=== PATIENT | female | born 1955 | race Caucasian/White ===

== ENCOUNTER 2016-08-30 21:22 | Observation (INO) | payer BC ==
[2016-08-30] MEDS ORDERED: GLUCAGON 1 MG/ML VIAL IVP STA (21:53)
[2016-08-30] MEDS ORDERED: SODIUM CHLORIDE 0.9% 1,000 ML IV STA ×2 (21:53→23:01)
--- NOTE | 2016-08-30 22:58 | ED ---
General Adult HPI - General Chief complaint: ENT Stated complaint: food stuck in esophagus Time Seen by Provider: 08/30/16 21:39 Source: patient Mode of arrival: ambulatory Limitations: no limitations - History of Present Illness Initial comments: The patient is a 61 y/o female who presents to the ED with a chief complaint of difficulty with swallowing. The patient states that she developed this sensation after eating a tuna fish sandwich for dinner. The patient states that she believes that she has a hx of esophageal web. She has had an EGD performed in the past by her [employer] Team Leader, Dr. Addison. The patient notes that she has never needed endoscopy to treat a food bolus in the esophagus in the past. The patient notes that she can clear secretions but she develops vomiting after she attempts to drink water. The patient takes no medications aside from Metoprolol. - Related Data Home Medications Medication Instructions Recorded Confirmed Metoprolol Tartrate Unknown 0.5 tab PO BID 08/30/16 08/30/16 Strength Allergies Allergy/AdvReac Type Severity Reaction Status Date / Time codeine AdvReac Nausea & Verified 08/30/16 22:03 Vomiting Review of Systems ROS Statement: Those systems with pertinent positive or pertinent negative responses have been documented in the HPI. ROS Other: All systems not noted in ROS Statement are negative. Constitutional: Denies: fever, chills, weakness Eyes: Denies: vision change ENT: Reports: other (foreign body sensation in throat. Difficulty with swallowing). Denies: throat pain Respiratory: Denies: cough, dyspnea, wheezes, hemoptysis Cardiovascular: Denies: chest pain Endocrine: Denies: fatigue Gastrointestinal: Reports: nausea, vomiting. Denies: abdominal pain, diarrhea, constipation, hematemesis Genitourinary: Denies: urgency, dysuria, frequency Skin: Denies: rash Neurological: Denies: headache Psychiatric: Denies: anxiety, depression Past Medical History Past Medical History: Hypertension History of Any Multi-Drug Resistant Organisms: None Reported Past Surgical History: Hysterectomy Past Psychological History: No Psychological Hx Reported Smoking Status: Never smoker Past Alcohol Use History: Occasional Past Drug Use History: None Reported General Exam Limitations: no limitations General appearance: alert, in no apparent distress Head exam: Present: atraumatic, normocephalic Eye exam: Present: normal appearance, PERRL Pupils: Present: normal accommodation ENT exam: Present: normal exam, mucous membranes moist Neck exam: Present: normal inspection, full ROM. Absent: lymphadenopathy Respiratory exam: Present: normal lung sounds bilaterally. Absent: respiratory distress, wheezes, rales, rhonchi, stridor Cardiovascular Exam: Present: regular rate, normal rhythm GI/Abdominal exam: Present: soft. Absent: distended, tenderness, guarding, rebound Extremities exam: Present: normal inspection, full ROM Back exam: Present: normal inspection, full ROM Neurological exam: Present: alert, oriented X3 Psychiatric exam: Present: normal affect, normal mood Skin exam: Present: warm, dry, intact Course Vital Signs 08/30/16 21:33 Temperature 99.9 F H Pulse Rate 110 H Respiratory 18 Rate Blood Pressure 173/90 O2 Sat by Pulse 96 Oximetry Medical Decision Making - Medical Decision Making The patient is a 61 y/o female who presents to the ED with a chief complaint of foreign body sensation in the throat. The patient states that she developed this sensation after eating a tuna fish sandwich. The patient states that she believes she has a hx of esophageal web. The patient has never required endoscopy in the past for a food bolus. Will provide the patient with bolus of IVF. Will provide patient with Glucagon IV to see if this is able to relax the patient's esophageal sphincter and help to pass the food bolus. 10:46 PM The patient is no improved after receiving Glucagon. Patient vomited immediately after taking sips of water. Call placed to Dr. Palencia, who is waterfront director from Gastroenterology. 11:[address] Palencia. Will keep patient in Observation for Endoscopy tomorrow morning. Disposition Clinical Impression: Food impaction of esophagus Disposition: ADMITTED IP TO THIS [facility] Condition: Stable Decision to Admit Reason: Admit from Decision Date: 08/30/16 Decision Time: 23:08
[2016-08-30] MEDS ORDERED: ONDANSETRON 4 MG/2 ML VIAL IVP STA (23:01)
[2016-08-30] MEDS ORDERED: NALOXONE 0.4 MG/ML 1 ML VIAL IV PRN (23:11)
[2016-08-30] MEDS ORDERED: ONDANSETRON 4 MG/2 ML VIAL IVP PRN (23:13)
[2016-08-31 00:06] LABS: Basophils % (A) 0 %; CHCM 33.5; Eosinophils # (A) 0.1 k/uL (0-0.7); Eosinophils % (A) 1 %; HCT 39.8 % (34.0-46.0); HDW 2.46; HGB 13.3 gm/dL (11.4-16.0); Luc # (Auto) 0.09; Luc % (Auto) 1; Lymphocytes # (A) 1.3 k/uL (1.0-4.8); Lymphocytes % (A) 11 %; MCHC 33.4 g/dL (31.0-37.0); Monocytes # (A) 0.6 k/uL (0-1.0); Monocytes % (A) 6 %; Neutrophils # (A) 9.4 k/uL (1.3-7.7); Neutrophils % (A) 82 %; RBC 4.42 m/uL (3.80-5.40); RDW 13.9 % (11.5-15.5); WBC 11.5 k/uL (3.8-10.6); WBC (Perox) 10.48
[2016-08-31 00:12] LABS: Anion Gap 8 mmol/L; Blood Urea Nitrogen 11 mg/dL (7-17); Calcium 9.4 mg/dL (8.4-10.2); Carbon Dioxide 21 mmol/L (22-30); Chloride 108 mmol/L (98-107); Glucose 133 mg/dL (74-99); Non-African American GFR(MDRD) >60 (>60 ml/min/1.73 sqM); Potassium 4.2 mmol/L (3.5-5.1); Sodium 137 mmol/L (137-145)
[2016-08-31 00:16] LABS: Prothrombin Time 10.5 sec (9.0-12.0)
[2016-08-31 00:36] VITALS: BMI 32.4
[2016-08-31 02:23] VITALS: RESP 16
[2016-08-31 07:46] VITALS: BP 156/79; PULSE 77; TEMP 98.2
[2016-08-31] MEDS ORDERED: PANTOPRAZOLE 40 MG/10 ML VIAL IVP SCH (09:00)
--- NOTE | 2016-08-31 09:14 | P.HPIM ---
History of Present Illness H&P Date: 08/31/16 Chief Complaint: dysphagia 61-year-old female patient of Dr. Hernandez ([place]) with a past medical history of atrial fibrillation maintained on aspirin/beta kim, GERD with chronic distal esophageal strictures, and hypertension. Patient presents with acute dysphagia mid to distal lower chest discomfort after eating a tuna fish sandwich with lettuce yesterday evening around 7 PM. She vomited 3-4 times undigested tuna fish material but still has a sensation of fullness and discomfort in the region of her mid to lower esophagus. Denies hematemesis hematochezia melena. No fever or chills. She's had multiple distal esophageal dilations, last endoscopy evaluation was about 4 years ago with dilation of a distal esophageal stricture performed by Dr. Addison in [facility]. She does not take H2 antagonist or PPI therapy on a daily basis. She uses jose to maintain her GERD symptoms. Resume she is resting comfortably with improvement in her lower chest discomfort. INR 1.1. White count 11. Hemoglobin 13.3. Last dose of baby aspirin 08/30/2016. Review of Systems Constitutional: Denies fever, chills, sweats, weight gain, or loss. HEENT: Negative for migraines, blurred vision or loss, earaches, drainage, tinnitus, oral mucosal lesions, dysphagia, or odynophagia. CARDIAC: Atrial fibrillation. Hypertension. RESPIRATORY: Negative for shortness of breath, hemoptysis, cough, or sputum production. GI: See HPI for pertinent findings. : Negative for hematuria, urgency, frequency, polyuria, or dysuria. GYNc: Negative vaginal discharge. MUSCULOSKELETAL: Negative for muscle aches, swelling, arthritis, and arthralgias. NEUROLOGIC: Negative for stroke or TIA. ENDOCRINE: Negative for thyroid problems. SKIN: Negative for rash or itching. PSYCHIATRIC: Negative history for depression and anxiety Past Medical History Past Medical History: Atrial Fibrillation, GERD/Reflux, Hypertension History of Any Multi-Drug Resistant Organisms: None Reported Past Surgical History: Hysterectomy Past Psychological History: No Psychological Hx Reported Smoking Status: Never smoker Past Alcohol Use History: Occasional Past Drug Use History: None Reported Medications and Allergies Home Medications Medication Instructions Recorded Confirmed Type Metoprolol Tartrate [Metoprolol 25 mg PO BID 08/31/16 08/31/16 History Tartrate] Allergies Allergy/AdvReac Type Severity Reaction Status Date / Time codeine AdvReac Nausea & Verified 08/30/16 22:03 Vomiting Physical Exam Vitals: Vital Signs Temp Pulse Resp BP Pulse Ox 08/31/16 07:00 98.2 F 77 16 156/79 98 08/31/16 02:22 97.0 F L 99 16 130/88 94 L 08/31/16 00:30 98.2 F 95 18 162/72 95 08/31/16 00:15 18 Intake and Output 08/30/16 08/31/16 08/31/16 22:59 06:59 14:59 Intake Total 600 Balance 600 Intake: Intake, IV Titration 600 Amount Sodium Chloride 0.9% 1, 600 000 ml @ 100 mls/hr IV . Q10H STA Rx#:[id number] Other: Voiding Method Toilet # Voids 1 Weight 91.138 kg General appearance: The patient is alert, oriented, in no acute distress. HET: Head is normocephalic and atraumatic. Pupils are equal and reactive. Oropharynx is clear without lesions. Neck: Supple without lymphadenopathy. Trachea midline. Heart: S1 S2. Regular rate and rhythm. Lungs: No crackles or wheezes are heard. Abdomen: Soft, very mild midepigastric tenderness, nondistended with bowel sounds. No peritoneal signs. No palpable organomegaly or masses. Extremities: Normal skin color and turgor. No cyanosis, rash, ulceration, clubbing, or edema. Radial and pedal pulses are 2/4 bilaterally. Neurological: No focal deficits. Strength and sensation are grossly intact. Results CBC & Chem 7: 08/30/16 23:45 08/30/16 23:45 Labs: Abnormal Lab Results - Last 24 Hours (Table) 08/30/16 08/30/16 Range/Units 23:45 23:45 WBC 11.5 H (3.8-10.6) k/uL Neutrophils # 9.4 H (1.3-7.7) k/uL Chloride 108 H (98-107) mmol/L Carbon Dioxide 21 L (22-30) mmol/L Glucose 133 H (74-99) mg/dL Thrombosis Risk Factor Assmnt - Choose All That Apply Any of the Below Risk Factors Present?: Yes Each Factor Represents 1 point: Age 41-60 years Other Risk Factors: No Thrombosis Risk Factor Assessment Total Risk Factor Score: 1 Thrombosis Risk Factor Assessment Level: Low Risk Assessment and Plan (1) Dysphagia Narrative/Plan: Possible food impaction with history of underlying distal esophageal stricture disease Status: Acute (2) History of esophageal stricture Status: Chronic (3) GERD (gastroesophageal reflux disease) Status: Chronic (4) Atrial fibrillation Status: Chronic (5) Hypertension Status: Chronic Plan: 1. EGD evaluation. Hold baby aspirin today. 2. Protonix IV 40 mg 1. 3. Anticipate discharge after procedure today with follow-up Dr. Addison brick and blocker aid labor office discharge. The brick and blocker aid labor has discussed the risks, benefits and alternative therapies for the above-mentioned procedure and for both sedation/analgesia as well as necessary blood product administration, if indicated, as they pertain to this patient. The patient has indicated understanding and acceptance of the risks and procedures discussed. This history and physical was discussed with Dr. Palencia. The impression and plan a care have been directed as dictated.
[2016-08-31] MEDS ORDERED: PROPOFOL 10 MG/ML 20 ML VIAL IV ONE (10:26)
--- NOTE | 2016-08-31 10:36 | P.PCN ---
Date of Procedure: 08/31/16 Procedure(s) Performed: BRIEF HISTORY: Patient is a 61-year-old, pleasant, white female, scheduled for an upper endoscopy as part of evaluation of acute for dysphagia that happened yesterday evening when she was eating a tuna sandwich. The patient has been having intermittent dysphagia to solids for the last few months duration but never to this extent. She recalls having an upper endoscopy with possible dilation approximate the 4 years ago for esophageal stricture. She also has history of GERD and a past was on Prevacid but for the last 2 years has not been on any medications. PROCEDURE PERFORMED: Esophagogastroduodenoscopy with biopsy PREOPERATIVE DIAGNOSIS: Acute food dysphagia. IV sedation per anesthesia. PROCEDURE: After informed consent was obtained, the patient was brought into the endoscopy unit. IV sedation was administered by Anesthesia under continuous monitoring. Initially the Olympus GIF-140 video endoscope was inserted into the mouth. Esophagus intubated without any difficulty. It was gradually advanced into the stomach and duodenum and carefully examined. There was no esophageal foreign body impaction seen. The bulb and the second part of the duodenum appeared normal. The scope at this time was withdrawn to the stomach, adequately insufflated with air, and upon careful examination, mucosa of the antrum, body, cardia and the fundus appeared normal. The scope was then withdrawn into the esophagus. Moderate size hiatal hernia noted. The diaphragmatic impression was located at 40 cm from the incisors The GE junction was located at 36 cm from the incisors. There was a distal esophageal stricture identified but this did not impede the passage of the scope. There was circumferential erythema of the distal esophagus and questionable Moreno's esophagus and hence biopsies were done this proximal to the GE junction. The rest of the esophagus appeared normal. There were no erosions or ulcerations seen and the patient tolerated the procedure well. IMPRESSION: 1. No esophageal food bolus. 2. Distal esophageal stricture with esophagitis and questionable Moreno's esophagus. 3. Moderate-sized hiatal hernia. RECOMMENDATIONS: The findings of this examination were discussed with the patient as well as her family. She will be started on a soft diet and can be discharged home today with outpatient follow-up in 3-4 weeks. Based on symptoms I will consider proceeding with an upper endoscopy with a dilation if needed. In the meantime she was advised to start on Prevacid 30 mg daily and follow antireflux measures.
--- NOTE | 2016-08-31 11:34 | P.DS ---
Providers Date of admission: 08/30/16 23:11 Expected date of discharge: 08/31/16 Attending physician: Basia Palencia Primary care physician: Dwight Hernandez - Discharge Diagnosis(es) (1) Dysphagia Current Visit: Yes Status: Acute (2) History of esophageal stricture Current Visit: Yes Status: Chronic (3) GERD (gastroesophageal reflux disease) Current Visit: Yes Status: Chronic (4) Atrial fibrillation Current Visit: Yes Status: Chronic (5) Hypertension Current Visit: Yes Status: Chronic Hospital Course: 61 year old female history of GERD esophageal stricture disease with previous dilations presented with acute dysphagia after eating a tuna fish sandwich. EGD performed and revealed no evidence of retained food bolus however distal esophageal stricture was identified without dilation. Questionable Barretts biopsy performed and moderate hiatal hernia. She was advised PPI therapy daily and to F/U with her PCP and GI specialist after discharge. She verbalized understanding of DC instructions. Procedures: EGD with biopsy Patient Condition at Discharge: Stable Plan - Discharge Summary New Discharge Prescriptions: Omeprazole 20 mg PO DAILY #30 cap Discharge Medication List Metoprolol Tartrate 25 mg PO BID 08/31/16 [History] Omeprazole 20 mg PO DAILY #30 cap 08/31/16 [Rx] Follow up Appointment(s)/Referral(s): Dwight Hernandez DO [Primary Care Provider] - 1-2 days Patient Instructions/Handouts: Gastroesophageal Reflux Disease (DC), Esophageal Stricture (GEN) Activity/Diet/Wound Care/Special Instructions: soft diet as tolerated Follow up with Dr. Addison light armored vehicle officer 1 week after discharge. Discharge Disposition: HOME SELF-CARE
== END 2016-08-31 11:45 | disposition home or self-care (01) ==
LOC: EC 21:22 → 3SUR 23:11
PROVIDERS: ADMIT Internal Medicine Gastroenterology; ATTEND Internal Medicine Gastroenterology
DX: R13.10 Dysphagia, unspecified (principal); K22.2 Esophageal obstruction; K44.9 Diaphragmatic hernia without obstruction or gangrene; K21.0 Gastro-esophageal reflux disease with esophagitis; I48.91 Unspecified atrial fibrillation; I10 Essential (primary) hypertension; Z79.899 Other long term (current) drug therapy; Z88.5 Allergy status to narcotic agent
CPT/HCPCS: 96361 ×2; 96374; 96375; 99284; 93005; 88305; 80048; 83735; 84484; 85025; 85610; 88342; 43239; G0378 ×2; J1610; J2405; J2704; C9113

== ENCOUNTER → 2016-09-09 | Outpatient (CLI) | payer BC ==
[2016-09-09 09:07] LABS: Bilirubin, Delta 0.2 mg/dL (0.0-0.2); Total Bilirubin 0.7 mg/dL (0.2-1.3); Total Protein 7.5 g/dL (6.3-8.2)
== END | disposition home or self-care (01) ==
LOC: LABWHC1 08:08
PROVIDERS: ATTEND Internal Medicine Cardiovascular Disease
DX: I25.10 Atherosclerotic heart disease of native coronary artery without angina pectoris (principal); E78.5 Hyperlipidemia, unspecified
CPT/HCPCS: 36415; 80061; 80076

== ENCOUNTER 2016-11-15 09:56 | Day surgery (SDC) | payer BC ==
[2016-11-10 14:19] VITALS: BMI 30.9
[~2016-11-15 09:56] MED LIST: LACTATED RINGERS 1,000 ML IV SCH; LIDOCAINE 1% 20 ML VIAL (10MG/ML) FOR IV START INTRADERMA PRN
[2016-11-15 10:33] VITALS: RESP 16; TEMP 97.3
[2016-11-15] MEDS ORDERED: PROPOFOL 10 MG/ML 20 ML VIAL IV ONE (11:04)
[2016-11-15] MEDS ORDERED: LIDOCAINE 1% INJ 10MG/ML (20 ML MDV) ONE (11:04)
[2016-11-15] MEDS ORDERED: GLYCOPYRROLATE 0.2 MG/ML 2 ML VIAL ONE (11:04)
--- NOTE | 2016-11-15 11:22 | P.PCN ---
Date of Procedure: 11/15/16 Preoperative Diagnosis: Postoperative Diagnosis: Procedure(s) Performed: BRIEF HISTORY: Patient is a 61-year-old, pleasant, white female, scheduled for an upper endoscopy as a part of evaluation of intermittent dysphagia to solids. She had an episode of acute for dysphagia in August 2016 an upper endoscopy on an emergency basis revealed a distal esophageal stricture. She is hence scheduled for an upper endoscopy with dilation today.. PROCEDURE PERFORMED: Esophagogastroduodenoscopy with biopsy and dilation. PREOPERATIVE DIAGNOSIS: Dysphagia to solids and recent episode of acute for dysphagia. IV sedation per anesthesia. PROCEDURE: After informed consent was obtained, the patient was brought into the endoscopy unit. IV sedation was administered by Anesthesia under continuous monitoring. Initially the Olympus GIF-140 video endoscope was inserted into the mouth. Esophagus intubated without any difficulty. It was gradually advanced into the stomach and duodenum and carefully examined. The bulb and the second part of the duodenum appeared normal. The scope at this time was withdrawn to the stomach, adequately insufflated with air, and upon careful examination, mucosa of the antrum, body, cardia and the fundus appeared normal. The scope was then withdrawn into the esophagus. Moderate size hiatal hernia noted. The GE junction was located at 35 cm from the incisors. There was a distal esophageal stricture identified and I proceeded with a balloon dilation initially to 12 mm balloon followed by 13.5 mm and 15 mm balloons sequentially for total of 90 seconds. There was some thickening of the mucosal folds in the distal esophagus and hence biopsies were also done from this area. The rest of the esophagus appeared normal. There were no erosions or ulcerations seen and the patient tolerated the procedure well. IMPRESSION: 1. Distal esophageal stricture status post balloon dilation using 12-15 mm TTS balloon as described above. 2. Moderate size hiatal hernia. RECOMMENDATIONS: The findings of this examination were discussed with the patient as well as her family. She was advised to be on a clear liquid diet today. She will continue with Prilosec 20 mg daily and follow anti-reflex measures. She'll be seen in office in 6 months. Implants: Indications for Procedure: Operative Findings: Description of Procedure:
[2016-11-15 11:36] VITALS: BP 128/71; PULSE 71
== END 2016-11-15 11:55 | disposition home or self-care (01) ==
LOC: ORWHC2ENDO 09:56
PROVIDERS: ATTEND Internal Medicine Gastroenterology
DX: K22.2 Esophageal obstruction (principal); K21.0 Gastro-esophageal reflux disease with esophagitis; K44.9 Diaphragmatic hernia without obstruction or gangrene; I48.91 Unspecified atrial fibrillation; I10 Essential (primary) hypertension; Z79.82 Long term (current) use of aspirin; Z79.899 Other long term (current) drug therapy; Z88.5 Allergy status to narcotic agent
CPT/HCPCS: 88305; 43239; 43249; J2001; J2704; C1726

== ENCOUNTER → 2017-02-20 | Outpatient (CLI) | payer BC ==
--- NOTE | 2017-02-21 10:46 | MM ---
Reason for exam: screening (asymptomatic). Last mammogram was performed 1 year and 2 months ago. History: Patient is postmenopausal, has history of endometrial cancer at age 53, and is nulliparous. Physical Findings: A clinical breast exam by your physician is recommended on an annual basis and results should be correlated with mammographic findings. MG 3D Screening Mammo W/Cad Bilateral CC and MLO view(s) were taken. Prior study comparison: December 23, 2015, bilateral MG screening mammo w CAD. September 01, 2014, bilateral MG screening mammo w CAD. The breast tissue is heterogeneously dense. This may lower the sensitivity of mammography. There is chronic nodularity in the right breast is stable. No significant changes when compared with prior studies. ASSESSMENT: Benign, BI-RAD 2 RECOMMENDATION: Routine screening mammogram of both breasts in 1 year.
== END | disposition home or self-care (01) ==
LOC: RADMAMWWP 16:05
PROVIDERS: ATTEND Family Medicine
DX: Z12.31 Encounter for screening mammogram for malignant neoplasm of breast (principal)
CPT/HCPCS: 77063; G0202

== ENCOUNTER → 2017-08-04 | Outpatient (CLI) | payer BC ==
[2017-08-04 09:55] LABS: ALT 31 U/L (9-52); AST 28 U/L (14-36); Cholesterol 209 mg/dL (<200); HDL Cholesterol 59 mg/dL (40-60); LDL Cholesterol,Calculated 122 mg/dL (0-99); Triglycerides 140 mg/dL (<150)
== END | disposition home or self-care (01) ==
LOC: LABWHC1 09:08
PROVIDERS: ATTEND Internal Medicine Cardiovascular Disease
DX: E78.5 Hyperlipidemia, unspecified (principal)
CPT/HCPCS: 36415; 80061; 84450; 84460

== ENCOUNTER → 2018-05-03 | Outpatient (CLI) | payer BC ==
--- NOTE | 2018-05-12 11:02 | MM ---
Reason for exam: screening (asymptomatic). Last mammogram was performed 1 year and 2 months ago. History: Patient is postmenopausal, has history of endometrial cancer at age 53, and is nulliparous. MG 3D Screening Mammo W/Cad Bilateral CC and MLO view(s) were taken. Prior study comparison: February 20, 2017, bilateral MG 3d screening mammo w/cad. December 23, 2015, bilateral MG screening mammo w CAD. The breast tissue is heterogeneously dense. This may lower the sensitivity of mammography. There is a similar grouping of tubular circumscribed masses, possibly ductal ectasia on the right breast in the lower inner quadrant seen back to 2014. No suspicious abnormality. No significant changes when compared with prior studies. ASSESSMENT: Benign, BI-RAD 2 RECOMMENDATION: Routine screening mammogram of both breasts in 1 year.
== END | disposition home or self-care (01) ==
LOC: RADMAMWWP 08:16
PROVIDERS: ATTEND Family Medicine
DX: Z12.31 Encounter for screening mammogram for malignant neoplasm of breast (principal)
CPT/HCPCS: 77063; 77067

== ENCOUNTER → 2019-06-03 | Outpatient (CLI) | payer BC ==
--- NOTE | 2019-06-04 11:15 | MM ---
Reason for exam: screening (asymptomatic). Last mammogram was performed 1 year and 1 month ago. History: Patient is postmenopausal, has history of endometrial cancer at age 53, and is nulliparous. Physical Findings: A clinical breast exam by your physician is recommended on an annual basis and results should be correlated with mammographic findings. MG 3D Screening Mammo W/Cad Bilateral CC and MLO view(s) were taken. XCCL view(s) were taken of the right breast. Prior study comparison: May 03, 2018, bilateral MG 3d screening mammo w/cad. February 20, 2017, bilateral MG 3d screening mammo w/cad. The breast tissue is heterogeneously dense. This may lower the sensitivity of mammography. Focal asymmetry upper outer right breast 8.4cm from nipple. This finding is changed when compared with previous exams. ASSESSMENT: Incomplete: need additional imaging evaluation, BI-RAD 0 RECOMMENDATION: Special view mammogram of the right breast. If lesion persists on supplemental views, image directed ultrasound is recommended. [facility] will attempt to contact patient to return for supplemental views and ultrasound if indicated.
== END | disposition home or self-care (01) ==
LOC: RADMAMWWP 16:34
PROVIDERS: ATTEND Family Medicine
DX: Z12.31 Encounter for screening mammogram for malignant neoplasm of breast (principal)
CPT/HCPCS: 77063; 77067

== ENCOUNTER → 2019-06-12 | Outpatient (CLI) | payer BC ==
--- NOTE | 2019-06-12 15:05 | MM ---
Reason for exam: additional evaluation requested from abnormal screening. Last mammogram was performed less than 1 month ago. History: Patient is postmenopausal, has history of endometrial cancer at age 53, and is nulliparous. Physical Findings: Nurse did not find any significant physical abnormalities on exam. MG 3D Work Up W/Cad RT Spot compression CC, spot compression MLO, and LM view(s) were taken of the right breast. Prior study comparison: June 03, 2019, bilateral MG 3d screening mammo w/cad. May 03, 2018, bilateral MG 3d screening mammo w/cad. The breast tissue is heterogeneously dense. This may lower the sensitivity of mammography. The previously seen abnormality resolves on additional views and appears as fibroglandular tissue compatible with summation. These results were verbally communicated with the patient and result sheet given to the patient on 06/12/19. ASSESSMENT: Negative, BI-RAD 1 RECOMMENDATION: Return to routine screening mammogram schedule for both breasts.
== END | disposition home or self-care (01) ==
LOC: RADMAMWWP 14:20
PROVIDERS: ATTEND Family Medicine
DX: R92.8 Other abnormal and inconclusive findings on diagnostic imaging of breast (principal)
CPT/HCPCS: 77061; 77065

== ENCOUNTER → 2020-07-23 | Outpatient (CLI) | payer BC ==
--- NOTE | 2020-07-29 10:27 | MM ---
Reason for exam: screening (asymptomatic). Last mammogram was performed 1 year and 1 month ago. History: Patient is postmenopausal, has history of endometrial cancer at age 53, and is nulliparous. Physical Findings: A clinical breast exam by your physician is recommended on an annual basis and results should be correlated with mammographic findings. MG 3D Screening Mammo W/Cad Bilateral CC and MLO view(s) were taken. Prior study comparison: June 12, 2019, right breast MG 3d work up w/cad RT. June 03, 2019, bilateral MG 3d screening mammo w/cad. The breast tissue is heterogeneously dense. This may lower the sensitivity of mammography. There is chronic nodularity in the right breast. No significant changes when compared with prior studies. ASSESSMENT: Benign, BI-RAD 2 RECOMMENDATION: Routine screening mammogram of both breasts in 1 year.
== END | disposition home or self-care (01) ==
LOC: RADMAMWWP 16:50
PROVIDERS: ATTEND Family Medicine
DX: Z12.31 Encounter for screening mammogram for malignant neoplasm of breast (principal)
CPT/HCPCS: 77063; 77067

== ENCOUNTER → 2020-10-25 | Outpatient (CLI) | payer MEDICARE, BC ==
[2020-10-25 15:02] LABS: Basophils # (A) 0.05 X 10*3/uL (0.00-0.10); Basophils % (A) 0.8 %; Eosinophils # (A) 0.22 X 10*3/uL (0.04-0.35); Eosinophils % (A) 3.5 %; HCT 44.3 % (37.2-46.3); HGB 13.8 g/dL (12.0-15.0); Lymphocytes # (A) 1.81 X 10*3/uL (0.90-5.00); Lymphocytes % (A) 28.9 %; MCH 29.5 pg (27.0-32.0); MCHC 31.2 g/dL (32.0-37.0); MCV 94.7 fL (80.0-97.0); Mean Platelet Volume 10.8 fL (9.5-12.2); Monocytes # (A) 0.57 X 10*3/uL (0.20-1.00); Monocytes % (A) 9.1 %; Neutrophils % (A) 57.4 %; Platelet Count 224 X 10*3/uL (140-440); RBC 4.68 X 10*6/uL (4.10-5.20); RDW 14.6 % (11.5-14.5); WBC 6.27 X 10*3/uL (4.50-10.00)
[2020-10-25 15:27] LABS: African American GFR (CKD) 77.2 (60.0-200.0); Albumin 4.6 g/dL (3.80-4.90); Albumin/Globulin Ratio 2.19 (1.60-3.17); Anion Gap 6.1 mmol/L (4.00-12.00); BUN/Creat Ratio 13.33 Ratio (12.00-20.00); Calcium 9.4 mg/dL (8.7-10.3); Carbon Dioxide 25.9 mmol/L (21.6-31.8); Chol/HDL Ratio 3.81; Globulin 2.1 g/dL (1.6-3.3); LDL Cholesterol,Calculated 133.8 mg/dL (0.0-131.0); Non-African American GFR(CKD) 66.6 (60.0-200.0); Potassium 4.4 mmol/L (3.5-5.5); Total Bilirubin 0.8 mg/dL (0.2-1.2); Total Protein 6.7 g/dL (6.2-8.2); VLDL Calculation 29.2 mg/dL (5.00-40.00)
== END | disposition home or self-care (01) ==
LOC: LABWHC1 08:27
PROVIDERS: ATTEND Internal Medicine Cardiovascular Disease
DX: E78.5 Hyperlipidemia, unspecified (principal); I10 Essential (primary) hypertension
CPT/HCPCS: 36415; 80053; 80061; 85025

== ENCOUNTER → 2021-08-25 | Outpatient (CLI) | payer MEDICARE, BC ==
--- NOTE | 2021-08-26 12:24 | MM ---
Reason for exam: screening (asymptomatic). Last mammogram was performed 1 year and 1 month ago. History: Patient is postmenopausal, has history of endometrial cancer at age 53, and is nulliparous. Physical Findings: A clinical breast exam by your physician is recommended on an annual basis and results should be correlated with mammographic findings. MG 3D Screening Mammo W/Cad Bilateral CC and MLO view(s) were taken. Prior study comparison: July 23, 2020, bilateral MG 3d screening mammo w/cad. June 12, 2019, right breast MG 3d work up w/cad RT. The breast tissue is heterogeneously dense. This may lower the sensitivity of mammography. There is a tiny, stable chronic nodularity in the right breast. There is no discrete abnormality. ASSESSMENT: Benign, BI-RAD 2 RECOMMENDATION: Routine screening mammogram of both breasts in 1 year.
== END | disposition home or self-care (01) ==
LOC: RADMAMWWP 14:17
PROVIDERS: ATTEND Family Medicine
DX: Z12.31 Encounter for screening mammogram for malignant neoplasm of breast (principal); Z78.0 Asymptomatic menopausal state; Z85.42 Personal history of malignant neoplasm of other parts of uterus
CPT/HCPCS: 77063; 77067

== ENCOUNTER → 2022-02-08 | Outpatient (CLI) | payer MEDICARE, BC ==
[2022-02-08 10:42] LABS: Basophils # (A) 0.05 X 10*3/uL (0.00-0.10); Basophils % (A) 0.8 %; Eosinophils # (A) 0.18 X 10*3/uL (0.04-0.35); Eosinophils % (A) 2.9 %; HCT 42.8 % (37.2-46.3); HGB 13.6 g/dL (12.0-15.0); Immature Grans, Automated 0.5 %; Lymphocytes # (A) 1.78 X 10*3/uL (0.90-5.00); Lymphocytes % (A) 28.4 %; MCH 29.1 pg (27.0-32.0); MCHC 31.8 g/dL (32.0-37.0); MCV 91.6 fL (80.0-97.0); Mean Platelet Volume 10.7 fL (9.5-12.2); Monocytes # (A) 0.53 X 10*3/uL (0.20-1.00); Monocytes % (A) 8.5 %; NRBC Per 100 WBC 0 /100 WBCS (0.0-0.0); Neutrophils # (A) 3.69 X 10*3/uL (1.80-7.70); Neutrophils % (A) 58.9 %; Platelet Count 228 X 10*3/uL (140-440); RBC 4.67 X 10*6/uL (4.10-5.20); RDW 14.1 % (11.5-14.5); WBC 6.26 X 10*3/uL (4.50-10.00)
[2022-02-08 16:44] LABS: ALT 22 U/L (8-44); AST 23 U/L (13-35); Albumin 4.4 g/dL (3.8-4.9); Albumin/Globulin Ratio 1.99 (1.60-3.17); Alkaline Phosphatase 75 U/L (41-126); BUN/Creat Ratio 11.35 Ratio (12.00-20.00); Blood Urea Nitrogen 9.8 mg/dL (9.0-27.0); Calcium 9.5 mg/dL (8.7-10.3); Carbon Dioxide 22.8 mmol/L (20.0-27.5); Chloride 105 mmol/L (96-109); Chol/HDL Ratio 3.28 Ratio; Globulin 2.2 g/dL (1.6-3.3); Glucose 103 mg/dL (70-110); LDL Cholesterol,Calculated 112.1 mg/dL (0.0-131.0); Non-African American GFR(CKD) 69.9 (60.0-200.0); Potassium 4.4 mmol/L (3.5-5.5); Sodium 137 mmol/L (135-145); Total Protein 6.7 g/dL (6.2-8.2)
== END | disposition home or self-care (01) ==
LOC: LABWHC1 08:08
PROVIDERS: ATTEND Internal Medicine Interventional Cardiology
DX: I10 Essential (primary) hypertension (principal); E78.5 Hyperlipidemia, unspecified; I49.3 Ventricular premature depolarization
CPT/HCPCS: 36415; 80053; 80061; 83036; 85025

== ENCOUNTER → 2022-04-12 | Outpatient (CLI) | payer MEDICARE, BC ==
[2022-04-13 03:09] LABS: African American GFR (CKD) 73.8 (60.0-200.0); Anion Gap 19.1 mmol/L (10.00-18.00); BUN/Creat Ratio 15.48 Ratio (12.00-20.00); Blood Urea Nitrogen 14.3 mg/dL (9.0-27.0); Calcium 10.5 mg/dL (8.7-10.3); Carbon Dioxide 18.4 mmol/L (20.0-27.5); Non-African American GFR(CKD) 63.6 (60.0-200.0); Potassium 4.5 mmol/L (3.5-5.5)
== END | disposition home or self-care (01) ==
LOC: LABWHC1 13:05
PROVIDERS: ATTEND Nurse Practitioner Adult Health
DX: I10 Essential (primary) hypertension (principal)
CPT/HCPCS: 36415; 80048

== ENCOUNTER → 2022-08-30 | Outpatient (CLI) | payer MEDICARE, BC ==
[2022-08-30 15:54] LABS: ALT 24 U/L (8-44); AST 20 U/L (13-35); Chol/HDL Ratio 3.75 Ratio; LDL Cholesterol,Calculated 118.7 mg/dL (0.0-131.0)
== END | disposition home or self-care (01) ==
LOC: LABWHC1 07:54
PROVIDERS: ATTEND Internal Medicine Interventional Cardiology
DX: E78.2 Mixed hyperlipidemia (principal)
CPT/HCPCS: 36415; 80061; 84450; 84460

== ENCOUNTER → 2022-09-18 | Outpatient (CLI) | payer MEDICARE, BC ==
--- NOTE | 2022-09-19 19:53 | MM ---
Reason for Exam: Screening (asymptomatic). Last mammogram was performed 1 year(s) and 1 month(s) ago. Patient History: Menarche at age 9. Patient has no children. Left ovary removed at age 53. Right ovary removed at age 53. Hysterectomy at age 53. Postmenopausal. Endometrial cancer, age 53. Risk Values: Luda 5 year model risk: 2.1%. NCI Lifetime model risk: 6.7%. Prior Study Comparison: 06/12/2019 Right Diagnostic Mammogram, [facility]. 07/23/2020 Bilateral Screening Mammogram, [facility]. 08/25/2021 Bilateral Screening Mammogram, [facility]. Tissue Density: The breast tissue is heterogeneously dense. This may lower the sensitivity of mammography. Findings: Analyzed By CAD. Underlying chronic nodularity on the right made apparent on the 3-D images. There is no suspicious group of microcalcifications or new suspicious mass in either breast. Overall Assessment: Benign, BI-RAD 2 Management: Screening Mammogram of both breasts in 1 year. . Patient should continue monthly self-breast exams. A clinical breast exam by your physician is recommended on an annual basis. This exam should not preclude additional follow-up of suspicious palpable abnormalities. Note on Luda scores and lifetime risk: 1. A Luda score greater than 3% is considered moderate risk. If this is the case, consider specialist referral to assess eligibility for a risk reducing agent. 2. If overall lifetime risk for the development of breast cancer is 20% or higher, the patient may qualify for future screening with alternating mammogram and breast MRI. Electronically signed and approved by: Vivek Beaver M.D. Radiologist
== END | disposition home or self-care (01) ==
LOC: RADMAMWWP 16:02
PROVIDERS: ATTEND Student in an Organized Health Care Education/Training Program
DX: Z12.31 Encounter for screening mammogram for malignant neoplasm of breast (principal); Z78.0 Asymptomatic menopausal state
CPT/HCPCS: 77063; 77067

== ENCOUNTER → 2022-11-16 | Outpatient (CLI) | payer MEDICARE, BC ==
[2022-11-16 13:41] LABS: ALT 19 U/L (8-44); AST 21 U/L (13-35); Chol/HDL Ratio 2.67 Ratio; LDL Cholesterol,Calculated 71.9 mg/dL (0.0-131.0)
== END | disposition home or self-care (01) ==
LOC: LABWHC1 08:16
PROVIDERS: ATTEND Internal Medicine Interventional Cardiology
DX: E78.2 Mixed hyperlipidemia (principal)
CPT/HCPCS: 36415; 80061; 84450; 84460

== ENCOUNTER → 2023-09-27 | Outpatient (CLI) | payer MEDICARE, BC ==
--- NOTE | 2023-10-01 08:26 | MM ---
Reason for Exam: Screening (asymptomatic). Last screening mammogram was performed 12 month(s) ago. Patient History: Menarche at age 9. Patient has no children. Left ovary removed at age 53. Right ovary removed at age 53. Hysterectomy at age 53. Postmenopausal. Endometrial cancer, age 53. Risk Values: Luda 5 year model risk: 2.1%. NCI Lifetime model risk: 6.4%. Prior Study Comparison: 07/23/2020 Bilateral Screening Mammogram, [facility]. 08/25/2021 Bilateral Screening Mammogram, [facility]. 09/18/2022 Bilateral MG 3D screening mammo w/cad, [facility]. Tissue Density: The breasts are heterogeneously dense, which may obscure small masses. Findings: Analyzed By CAD. Chronic nodularity lateral right breast. There is no suspicious group of microcalcifications or new suspicious mass in either breast. Overall Assessment: Benign, BI-RAD 2 Management: Screening Mammogram of both breasts in 1 year. . Patient should continue monthly self-breast exams. A clinical breast exam by your physician is recommended on an annual basis. This exam should not preclude additional follow-up of suspicious palpable abnormalities. Note on Luda scores and lifetime risk: 1. A Luda score greater than 3% is considered moderate risk. If this is the case, consider specialist referral to assess eligibility for a risk reducing agent. 2. If overall lifetime risk for the development of breast cancer is 20% or higher, the patient may qualify for future screening with alternating mammogram and breast MRI. Electronically signed and approved by: Vivek Beaver M.D. Radiologist
== END | disposition home or self-care (01) ==
LOC: RADMAMWWP 12:38
PROVIDERS: ATTEND Family Medicine
DX: Z12.31 Encounter for screening mammogram for malignant neoplasm of breast (principal); Z78.0 Asymptomatic menopausal state
CPT/HCPCS: 77063; 77067

== ENCOUNTER → 2024-01-09 | Outpatient (CLI) | payer MEDICARE, BC ==
[2024-01-09 15:38] LABS: ALT 18 U/L (8-44); AST 19 U/L (13-35); Albumin 4.7 g/dL (3.8-4.9); Albumin/Globulin Ratio 2.14 Ratio (1.60-3.17); Alkaline Phosphatase 79 U/L (41-126); Blood Urea Nitrogen 10.8 mg/dL (9.0-27.0); Calcium 10.1 mg/dL (8.7-10.3); Carbon Dioxide 22.7 mmol/L (21.6-31.8); Chloride 114 mmol/L (96-109); Globulin 2.2 g/dL (1.6-3.3); Glucose 100 mg/dL (70-110); Potassium 4.7 mmol/L (3.5-5.5); Sodium 153 mmol/L (135-145); Total Bilirubin 0.3 mg/dL (0.3-1.2); Total Protein 6.9 g/dL (6.2-8.2)
== END | disposition home or self-care (01) ==
LOC: LABWHC1 07:53
PROVIDERS: ATTEND Internal Medicine Interventional Cardiology
DX: I10 Essential (primary) hypertension (principal)
CPT/HCPCS: 36415; 80053

== ENCOUNTER → 2024-04-04 | Outpatient (CLI) | payer MEDICARE, BC ==
[2024-04-04 10:53] LABS: ALT 15 U/L (8-44); AST 21 U/L (13-35); Albumin 4.3 g/dL (3.8-4.9); Albumin/Globulin Ratio 1.95 Ratio (1.60-3.17); Alkaline Phosphatase 79 U/L (41-126); BUN/Creat Ratio 14.22 Ratio (12.00-20.00); Blood Urea Nitrogen 12.8 mg/dL (9.0-27.0); Calcium 9.4 mg/dL (8.7-10.3); Carbon Dioxide 21.5 mmol/L (21.6-31.8); Chloride 105 mmol/L (96-109); Chol/HDL Ratio 4.66 Ratio; Globulin 2.2 g/dL (1.6-3.3); Glucose 100 mg/dL (70-110); LDL Cholesterol,Calculated 181.9 mg/dL (0.0-131.0); Potassium 4.5 mmol/L (3.5-5.5); Sodium 139 mmol/L (135-145); Total Bilirubin 0.3 mg/dL (0.3-1.2); Total Protein 6.5 g/dL (6.2-8.2)
== END | disposition home or self-care (01) ==
LOC: LABWHC1 07:15
PROVIDERS: ATTEND Internal Medicine Interventional Cardiology
DX: E78.2 Mixed hyperlipidemia (principal)
CPT/HCPCS: 36415; 80053; 80061

== ENCOUNTER → 2024-11-12 | Outpatient (CLI) | payer MEDICARE, BC ==
--- NOTE | 2024-11-12 10:13 | MM ---
Reason for Exam: Screening (asymptomatic). Last mammogram was performed 1 year(s) and 2 month(s) ago. Patient History: Menarche at age 9. Patient has no children. Left ovary removed at age 53. Right ovary removed at age 53. Hysterectomy at age 53. Postmenopausal. Endometrial cancer, age 53. Risk Values: Luda 5 year model risk: 2.1%. NCI Lifetime model risk: 6.1%. Prior Study Comparison: 05/03/2018 Bilateral Screening Mammogram, [facility]. 06/03/2019 Bilateral Screening Mammogram, [facility]. 06/12/2019 Right Diagnostic Mammogram, [facility]. 07/23/2020 Bilateral Screening Mammogram, [facility]. 08/25/2021 Bilateral Screening Mammogram, [facility]. 09/18/2022 Bilateral MG 3D screening mammo w/cad, [facility]. 09/27/2023 Bilateral MG 3D screening mammo w/cad, [facility]. Tissue Density: The breasts are heterogeneously dense, which may obscure small masses. Findings: Analyzed By CAD. There is no suspicious group of microcalcifications or new suspicious mass in either breast. Overall Assessment: Negative, BI-RAD 1 Management: Screening Mammogram of both breasts in 1 year. . Patient should continue monthly self-breast exams. A clinical breast exam by your physician is recommended on an annual basis. This exam should not preclude additional follow-up of suspicious palpable abnormalities. Note on Luda scores and lifetime risk: 1. A Luda score greater than 3% is considered moderate risk. If this is the case, consider specialist referral to assess eligibility for a risk reducing agent. 2. If overall lifetime risk for the development of breast cancer is 20% or higher, the patient may qualify for future screening with alternating mammogram and breast MRI. [facility], , 11/12/2024 10:11 AM. Electronically signed and approved by: Timmy Salazar M.D. Radiologis
== END | disposition home or self-care (01) ==
LOC: RADMAMWWP 09:23
PROVIDERS: ATTEND Family Medicine
DX: Z12.31 Encounter for screening mammogram for malignant neoplasm of breast (principal); R92.333 Mammographic heterogeneous density, bilateral breasts; Z78.0 Asymptomatic menopausal state
CPT/HCPCS: 77063; 77067